=== PATIENT | male | born 1965 | race Caucasian/White ===

== ENCOUNTER 2019-08-16 23:10 | Emergency (ER) | payer BC ==
[~2019-08-16] VITALS: Ht 162.6 cm; Wt 98.0 kg
[2019-08-16] MEDS ORDERED: ALBUTEROL/IPRATROPIUM 3 ML NEB NEB ONE (23:30)
[2019-08-16] MEDS ORDERED: ALBUTEROL/IPRATROPIUM 3 ML NEB ONE (23:31)
[2019-08-16] MEDS ORDERED: BROMFED DM COU118 ML PO (23:59)
== END 2019-08-17 00:27 | disposition home or self-care (01) ==
LOC: FSED 23:10
DX: B34.9 Viral infection, unspecified (principal); J00 Acute nasopharyngitis [common cold]; E66.9 Obesity, unspecified; Z68.37 Body mass index [BMI] 37.0-37.9, adult
CPT/HCPCS: 99282